=== PATIENT | male | born 1985 | race Caucasian/White ===

== ENCOUNTER 2020-05-25 11:26 | Outpatient (REF) | payer BC, SELFPAY ==
[2020-05-25 13:56] LABS: ALT 29 U/L (16-63); AST 18 U/L (15-37); Calculated LDL 121 mg/dL (<100); Cholesterol 196 mg/dL (<200); HDL Cholesterol 69 mg/dL (40-60); Triglyceride 31 mg/dL (<150)
== END 2020-05-25 11:46 ==
LOC: NCHCN 11:26
PROVIDERS: PCP Nurse Practitioner Family; Visit Provider Nurse Practitioner Family
DX: Z00.00 Encounter for general adult medical examination without abnormal findings (principal); Z13.220 Encounter for screening for lipoid disorders
CPT/HCPCS: 80061; 84450; 84460

== ENCOUNTER 2020-07-14 08:18 | Day surgery (SDC) | payer BC, SELFPAY ==
[2020-07-14 08:26] VITALS: BP 101/62; PULSE 63; RESP 16; TEMP 36.5; O2SAT 100
[2020-07-14] MEDS: Lactated Ringers 1,000 ML 80 ML IV (08:48)
--- NOTE | 2020-07-14 09:49 | BOWEL_PTH ---
PATIENT: Hardy Hickman LOC: [facility] U#:[id number] AGE/SX: 35/M ROOM: RE07/14/[address]: Angeles Mcbride : 1985 BED: DIS: 07/14/2020 SPEC #: [id number] RECD: 07/14/20 12:45 STATUS: GEOVANY REQ #: [id number] JIMMIE: 07/14/20 09:[address]: Angeles Mcbride DEPT: Surgical Specimen RECD BY: Milla Taveras ENTERED: 07/14/20 12:45 SP TYPE: Bowel OTHR DR: Alessandra Carolina Tissues: 1 - BIOPSY BOWEL Procedures: GROSS AND MICRO LEVEL 4 IMMUNOPEROXIDASE STAIN Comments: [id number]
--- NOTE | 2020-07-14 09:56 | W.COLOREPORT ---
Date of service: 07/14/20 Time of Service: 09:57 Colonoscopy Report Date of procedure: 07/14/20 Pre-op diagnosis general: 1st degree family member w/ crc <60 Post-op diagnosis procedure note: other (polyp) Surgeon: Angeles Mcbride Anesthesia proc note operative: GETA Estimated blood loss (mL): 1 Pathology: other Complications: None Disposition: same day Prep: Miralax/Dulcolax Retraction Time: 15 mins Procedure Description: After informed consent was obtained the patient was taken to the procedure room and placed in a left decubitous position. Monitors were applied and a time out was done. The patients name, date of , procedure, allergies to medications and metal in their body was reviewed. The patient was then sedated. Once sedated and comfortable a rectal exam was done. External exam was normal. Internal exam revealed a normal sphincter tone and no palpable masses. The scope was then introduced and retrofelexed. no internal hemorrhoids were identified. The scope was then advanced to the cecum w/out difficulty. The TI and appendiceal orifice were identified. The prep was good. The scope was then slowly retracted over 15 minutes back into the rectum. Polyps were removed in rectum. Patient had a 1 cm polyp in the rectum. This is removed with a hot polypectomy snare. an EndoClip was placed over the defect. All specimens are retrieved and no bleeding is noted. There are no AVMs or diverticula. The mucosa is pink and healthy. The scope was removed and the patient was woken up and taken back to Same day surgery in stable condition. The patient tolerated the procedure well and there were no immediate complications. Follow up: The patient should follow up in 3-5 years, path pd, unless they develop changes in bowel habits or other new gastrointestinal complaints.
--- NOTE | 2020-07-14 10:00 | W.PM.DSUDISC ---
Discharge Plan Disposition Patient Disposition: HOME Condition: Good Discharge Details Reason For Visit: colon scope Attending Provider: Angeles Mcbride Primary Care Provider: Alessandra Carolina Discharge Instructions Additional Instructions: Findings:x1 polyp -No aspirin or NSAIDs x7 days. Follow up: We will send a letter in approximately 3 weeks as to when to repeat the colonoscopy. This will most likely be between 3 to 5 years. Please call if you develop: fevers >101.5 Nausea or Vomiting Abdominal pain that is not transient DAY SURGERY UNIT POST COLONOSCOPY INSTRUCTIONS 1. Because there will be medication in your system for the next 24 hours, you may feel a little sleepy. Your coordination will be affected. Therefore: a. Do not drive or operate dangerous equipment for 24 hours. b. Do not drink alcohol beverages for 24 hours (not even beer). c. Plan to go home and rest for the day. 2. Generally there are no restrictions on your activity after a day or so has gone by, but you may feel a bit fatigued for a few days. 3 After you arrive home you may have a light meal and return to a normal diet as you can tolerate it without feeling sick to your stomach. 4. After surgery, you may feel pain or discomfort. This should be only transient, but if it persists please contact your doctor. 5. If there are any questions regarding the findings of your procedure, please feel free to contact your doctor. 6. If you are unable to contact your doctor with a problem, contact the hospital at [phone]. 7. Continue all your regular medications unless directed otherwise. I understand the above instructions and have no questions. Signature of Patient or Responsible Adult Escort Date/Time Name of Responsible Adult Escort Signature of Nurse Date/Time Activity:: No strenuous activity or heavy lifting x72 hours. Diet:: Small light meals x24 hours. He did not cut it Discharge Orders Discharge Orders: Discharge Order (Routine); Ordered 07/14/20 Ordered By: Anglees Mcbride DS: Diagnosis Discharge Diagnosis (1) Adenomatous polyps: Status: Acute
[2020-07-14 10:32] VITALS: BP 106/76; PULSE 56; RESP 16; TEMP 36.6; O2SAT 100
== END 2020-07-14 11:50 | disposition home or self-care (01) ==
PROVIDERS: PCP Nurse Practitioner Family; Visit Provider Surgery
PROC: 0DJD8ZZ Inspection of Lower Intestinal Tract, Via Natural or Artificial Opening Endoscopic (ICD-10-PCS; CPT 45378; principal; 2020-07-14 09:00)
DX: Z12.11 Encounter for screening for malignant neoplasm of colon (principal); D3A.8 Other benign neuroendocrine tumors; Z80.0 Family history of malignant neoplasm of digestive organs
CPT/HCPCS: 45385; 88305; 88361; J2001

== ENCOUNTER 2020-07-25 18:25 | Outpatient (REF) | payer BC, SELFPAY ==
--- NOTE | 2020-07-25 11:30 | SKI_PTH ---
PATIENT: Hardy Hickman LOC: [facility] U#:[id number] AGE/SX: 35/M ROOM: RE07/25/[address]: Alessandra Carolina : 1985 BED: DIS: 07/25/2020 SPEC #: [id number] RECD: 07/26/20 12:25 STATUS: GEOVANY MCDONALD #: [id number] JIMMIE: 07/25/20 11:[address]: Alessandra Carolina DEPT: Surgical Specimen RECD BY: Milla Taveras Tissues: 1 - SKIN BIOPSY(SHAVE/PUNCH) 2 - SKIN BIOPSY(SHAVE/PUNCH) 3 - SKIN CYST/TAG/DEBRIDEMENT Procedures: SKIN LEVEL 4 Comments: [id number]
== END 2020-07-25 18:26 | disposition home or self-care (01) ==
LOC: NCHCN 18:25
PROVIDERS: PCP Nurse Practitioner Family; Visit Provider Nurse Practitioner Family
DX: D22.5 Melanocytic nevi of trunk (principal); D22.62 Melanocytic nevi of left upper limb, including shoulder
CPT/HCPCS: 88304; 88305

== ENCOUNTER 2021-01-31 00:46 | Outpatient (CLI) | payer BC, SELFPAY ==
[2021-01-31 11:15] LABS: Source Nasal/Nares
[2021-01-31 17:20] LABS: COVID-19 PCR Negative (Negative)
== END 2021-01-31 00:47 | disposition home or self-care (01) ==
LOC: LBO 00:46
PROVIDERS: PCP Nurse Practitioner Family; Visit Provider Surgery
DX: Z20.822 Contact with and (suspected) exposure to COVID-19 (principal); Z01.818 Encounter for other preprocedural examination
CPT/HCPCS: 87635

== ENCOUNTER 2021-02-02 10:20 | Day surgery (SDC) | payer BC, SELFPAY ==
--- NOTE | 2021-02-01 22:44 | COLE_ITS ---
Colonoscopy Report Date of procedure: 02/02/21 Pre-op diagnosis general: carcinoid Post-op diagnosis procedure note: other (x1 polyp ) Surgeon: Angeles Mcbride Anesthesia Type: General:No Airway Pathology: other Disposition: PACU Prep: Miralax/Dulcolax Retraction Time: 12 Procedure Description: After informed consent was obtained the patient was taken to the procedure room and placed in a left decubitous position. Monitors were applied and a time out was done. The patients name, date of , procedure, allergies to medications and metal in their body was reviewed. The patient was then sedated. Once sedated and comfortable a rectal exam was done. External exam was normal. Internal exam revealed a normal sphincter tone and no palpable masses. The prostate nl The scope was then introduced and retrofelexed. No internal hemorrhoids were identified. The scope was then advanced to the cecum w/out difficulty. The TI and appendiceal orifice were identified. The prep was good. The scope was then slowly retracted over 12minutes back into the rectum. Polyps were removed at 20cm. This was a small flat 5 mm polyp and removed with cold biting forcep. Most likely this is going to be hyperplastic. He has no diverticuli. 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 There is no signs of regrowth. The scope was removed and the patient was woken up and taken back to Same day surgery in stable condition. The patient tolerated the procedure well and there were no immediate compli cations. Follow up: The patient should follow up in 1 years unless they develop changes in bowel habits or other new gastrointestinal complaints.
--- NOTE | 2021-02-01 22:45 | PDOC.DSDIS_ITS ---
Discharge Plan Disposition Patient Disposition: HOME Condition: Good Discharge Details Reason For Visit: colon scope Attending Provider: Angeles Mcbride Primary Care Provider: Alessandra Carolina Home Meds and New Rx's Prescriptions: Discontinued polyethylene glycol 3350 17 gram/dose powder 238 g PO ONCE Qty: 238 RF: 0 bisacodyl [Dulcolax (bisacodyl)] 5 mg tablet,delayed release (DR/EC) 5 mg PO ONCE Qty: 4 RF: 0 Discharge Instructions Additional Instructions: DSU Colonoscopy Post- Op Instructions Instructions for Everyone who is given Anesthesia: For your safety, please do the following for the next twenty-four (24) hours: *Do Not operate a motor vehicle (car, truck, motorcycle, etc.) *Do Not drink alcoholic beverages or use any recreational drugs for the first 24 hours or while taking pain medications. The medications in your body may have a reaction that can be dangerous. *Do Not make any important decisions or sign any important papers. Findings:x1 small polyp -will call w/ results. I think this polyp will be benign and not the pre-c ancerous type. The area that the carcinoid tumor was at previously, did not show any re-growth Follow up:repeat in 1 yrs time 1. No lifting over 20 pounds or strenuous activity for the first 24 hours after your procedure. After 24 hours there are no restrictions on your activity but you may feel fatigued for a few days. 2. After you arrive home you may have a light meal and return to your normal diet as you can tolerate it without feeling sick to your stomach. 3. You may have a bloated, gaseous feeling in your belly (abdomen) after a colonoscopy. Passing gas and belching will help. Walking or lying down on your left side with your knees flexed may relieve the discomfort. Call the office at [phone] (Office) or [phone] (Hospital) right away if you notice any of the following: a.Vomiting of blood or ?coffee ground stools?. b.Rectal bleeding 1Tbsp, blood clots or continuous bleeding. c.Severe belly (abdominal) pain. d.A hard distended belly (abdomen) and an inability to pass gas. 4. Please don?t expect to have a normal BM (bowel movement) for 2-3 days after your procedure. 5. If there are questions regarding the findings of your procedure, please contact your doctor 6. If you are unable to contact your doctor with a problem, contact the hospital at [phone]. 7. Continue all your regular medications unless directed otherwise. I understand the above instructions and have no questions. Signature of Patient or Adult Escort Name of Responsible Adult Escort Signature of Nurse Date/Time Activity:: see above Diet:: see above Discharge Orders Discharge Orders: Discharge Order (Routine); Ordered 02/01/21 Ordered By: Angeles Mcbride DS: Diagnosis Discharge Diagnosis (1) Family history of colon cancer: Status: Acute (2) Neuroendocrine tumor: Status: Acute
[2021-02-02 10:32] VITALS: BP 116/74; PULSE 69; RESP 18; TEMP 36.4; O2SAT 99
[2021-02-02] MEDS: Lactated Ringers 1,000 ML 80 ML IV (10:54)
--- NOTE | 2021-02-02 11:42 | W.ANESPRE ---
General Info Date of Service Date Performed: 02/02/21 Height: 6 ft 1 in Weight: 78.6 kg Body Mass Index (BMI): 22.8 Surgical Procedure: Operation Date: 02/02/21 11:20 Proposed Procedures Side Surgeon p Macy Mcbride DO Meds Allergies and Home Medications Allergies Allergy/AdvReac Type Severity Reaction Status Date / Time No Known Allergies Allergy Verified 02/02/21 10:40 Home Medication Medication Instructions Recorded bisacodyl 5 mg tablet,delayed 5 mg PO ONCE #4 tab 01/22/21 release polyethylene glycol 3350 17 238 g PO ONCE #238 g 01/22/21 gram/dose oral powder Current Visit Medications: Current Medications Generic Name Dose Route Start Last Admin Trade Name Freq PRN Reason Stop Dose Admin Hyoscyamine Sulfate 0.125 mg 02/01/21 22:43 Hyoscyamine 0.125 Mg Sl/Oral/Chew SL DIRECTED PRN Ringer's Solution 1,000 mls @ 80 mls/hr 02/02/21 06:00 02/02/21 10:54 IV 03/03/21 23:59 80 mls/hr INFUSION PRAVEEN Administration IV Miscellaneous Supplies 1 each 02/02/21 06:00 Iv Access IV 03/03/21 23:59 DIRECTED PRAVEEN Sodium Chloride 0 ml 02/02/21 06:00 Normal Saline Flush 10 Ml Syr IV 03/03/21 23:59 PRN PRN Sodium Chloride 0 ml 02/02/21 06:00 Normal Saline 10 Ml Vial IJ 03/03/21 23:59 DIRECTED PRN Sterile Water 0 ml 02/02/21 06:00 Water,Injection,Sterile 10 Ml Vial IJ 03/03/21 23:59 DIRECTED PRN PFSH Active Problems Active Problems: Problem Status Onset Code Family history of colon cancer Z80.0 Neuroendocrine tumor D3A.8 Medical History Medical History Family history of colon cancer Father in his 50's Functional communication disorder Obsessive compulsive disorder Toe pain, left Surgical History Surgical History History of colonoscopy with polypectomy (~07/14/20) Tobacco Smoking/Tobacco Use Status: Former Tobacco Use Alcohol Alcohol Intake: former Substance Use Substance use: Never Substance use type: does not use Vital Signs and Lab Results Vital Signs Most Recent Vital Signs in EMR: Most Recent Vital Signs Temp Pulse Resp BP Pulse Ox 36.4 C L 69 18 116/74 99 02/02/21 10:32 02/02/21 10:32 02/02/21 10:32 02/02/21 10:32 02/02/21 10:32 Lab Results Blood Type / Crossmatch: No Data to Display Complete Blood Count: No Data to Display Complete Metabolic Panel: No Data to Display Liver Function Panel: No Data to Display Coagulation Panel: No Data to Display Cardiac Panel: No Data to Display Arterial Blood Gas: No Data to Display Venous Blood Gas: No Data to Display Pancreas Panel: No Data to Display Thyroid Panel: No Data to Display Infectious Disease: Coronavirus (COVID-19)(PCR) Negative (Negative) 01/31/21 09:19 01/31/21 Coronavirus 2019 Source Nasal/Nares 01/31/21 09:19 01/31/21 Blood Cultures: No Data to Display Toxicology Panel: No Data to Display Anesthesia Assessment and Plan Anesthesia History Personal History: No History of Anesthesia Complications Family History: No Family History of Anesthesia Complications Exercise Tolerance Exercise Tolerance: Metabolic Equivalents>4 Pertinent Negatives Pertinent Negatives: No Symptoms of GERD, No Major Cardiovascular Symptoms or Complaints, No Major Pulmonary Symptoms or Complaints and No History of CVA/TIA Cardiac & Pulmonary Exam Cardiac Exam: Normal S1/S2 Heart Sounds Pulmonary Exam: Clear Bilateral Breath Sounds Airway Exam Known Difficult Airway: No Mallampati Class: 2 Mouth Opening: Normal (> 3cm) Thyromental Distance: Greater than 3 cm Neck Range of Motion: Full ROM Neck Circumference: Normal Teeth Condition: Normal Dentition ASA Classification ASA Score: ASA 2 Emergency Case?: No NPO Status NPO Status: NPO Clears >2 hours, Solids >8 hours Anesthesia Plan Resuscitation Status: Full Code Anesthesia Technique: General Anesthesia Airway Planned: Natural Airway Monitors Used: Standard Monitors
[2021-02-02 11:46] VITALS: BMI 22.8
--- NOTE | 2021-02-02 12:11 | BOWEL_PTH ---
PATIENT: Hardy Hickman LOC: [facility] U#:[id number] AGE/SX: 35/M ROOM: RE02/02/[address]: Angeles Mcbride : 1985 BED: DIS: 02/02/2021 SPEC #: [id number] RECD: 02/02/21 12:51 STATUS: GEOVANY REQ #: [id number] JIMMIE: 02/02/21 12:[address]: Angeles Mcbride DEPT: Surgical Specimen RECD BY: Milla Taveras ENTERED: 02/02/21 12:52 SP TYPE: Bowel OTHR DR: Alessandra Carolina Tissues: 1 - BIOPSY BOWEL Procedures: GROSS AND MICRO LEVEL 4 Comments: [id number]
[2021-02-02 12:21] VITALS: BP 98/60; PULSE 78; RESP 16; TEMP 36.4; O2SAT 98
--- NOTE | 2021-02-02 12:42 | W.ANESPOSTOP ---
Postoperative Evaluation Date, Time and Location Date Performed: 02/02/21 Time Performed: 12:21 Patient Location: Day Surgery Unit Vital Signs Most Recent Imported Vital Signs: Most Recent Vital Signs Temp Pulse Resp BP Pulse Ox 36.4 C L 78 16 98/60 L 98 02/02/21 12:21 02/02/21 12:21 02/02/21 12:21 02/02/21 12:21 02/02/21 12:21 Pain Score Most Recent Pain Score: Most Recent Pain Score Pain Level 0 02/02/21 12:21 Assessment Mental Status: Awake (Alert & Oriented to Patient Baseline) Airway and Respiratory Function: Patent airway with normal (patient baseline) respiratory exam Cardiovascular Function: Hemodynamically Stable Hydration Status: Adequately Hydrated Nausea & Vomiting: No Nausea or Vomiting Pain: Pt. Denies Any Pain Peripheral Nerve Block: Patient did not receive a nerve block
[2021-02-02 12:57] VITALS: BP 113/65; PULSE 60; RESP 14; TEMP 36.1; O2SAT 97
== END 2021-02-02 13:33 | disposition home or self-care (01) ==
LOC: SUR 10:20
PROVIDERS: PCP Nurse Practitioner Family; Visit Provider Surgery
PROC: 0DJD8ZZ Inspection of Lower Intestinal Tract, Via Natural or Artificial Opening Endoscopic (ICD-10-PCS; CPT 45378; principal; 2021-02-02 11:15)
DX: Z09 Encounter for follow-up examination after completed treatment for conditions other than malignant neoplasm (principal); K63.5 Polyp of colon; Z86.010 Personal history of colon polyps; Z80.0 Family history of malignant neoplasm of digestive organs
CPT/HCPCS: 45380; 88305; J2001

== ENCOUNTER 2021-07-06 10:40 | Emergency (ER) | payer OTHER, SELFPAY ==
[2021-07-06 10:55] VITALS: BP 118/74; PULSE 61; RESP 16; TEMP 36.7; O2SAT 98
--- NOTE | 2021-07-06 11:00 | DI.RAD_ITS ---
Exam(s) XR FINGER RT MIDDLE EXAM: XR FINGER RT MIDDLE CLINICAL HISTORY: fall, deformity/laxity mid to distal phalanx, lac. TECHNIQUE: 2D digital imaging was performed. COMPARISON: No exams were available for comparison FINDINGS: There is a fracture in the distal aspect of the middle phalanx of the 3rd-middle finger. Mild displa cement and this fracture does violates the articular surface of the DIP joint. There is no obvious f racture of the distal phalanx. No radiopaque foreign body. No osseous lesions. IMPRESSION: DATA REPOSITORY: RADIATION DOSE DELIVERED:
--- NOTE | 2021-07-06 11:17 | ED.GENADUL_ITS ---
Discharge Plan Disposition Patient Disposition: HOME Condition: Stable Discharge Details Chief Complaint: Orthopedic Clinical Impression: Finger fracture, right Primary Care Provider: Alessandra Carolina ED Provider: Quentin Urbina Home Meds and New Rx's Prescriptions: No Action No Known Home Meds 0RF Discharge Instructions Instructions: Finger Fracture (ED) Additional Instructions: Please follow-up with [facility] orthopedic team on Friday or Friday to have repeat examination. Return to the emergency department for worsening severe pain or signs of infection chest severe swelling warmth redness pus drainage. Ice elevation Motrin and Tylenol at home to relieve swelling and pain. Medical Decision Making 36-year-old male presented for mechanical fall, sustained superficial laceration/abrasion to dorsal aspect of third digit, deformity and laxity from mid to distal phalanx, neurovascular exam intact. No signs of head or spinal trauma. Patient is neurologically intact interactive resting comfortably. No signs of trauma to shoulder humerus elbow or forearm. Patient describes what sounds like a presyncopal episode in the setting of standing in the shower assessing his wound. No chest pain or shortness of breath. No further episodes. Will obtain x-ray, patient is up-to-date on tetanus, anti-inflammato ry analgesia, concern for fracture of phalanx versus dislocation. Superficial abrasion/laceration will be irrigated and likely closed with surgical glue and Steri-Strip given the minor nature. Lower suspicion for open fracture. Likely follow-up with orthopedic team 14: 10 patient resting comfortably no acute distress. Ring block performedwith 1% lidocaine approximately 2 to 4 cc; wound on dorsal aspect of third digit irrigated and explored, this is a superficial abrasion with a small laceration, and on its ulnar aspect without obvious flap or communication with deep space of finger, no evidence of open fracture no foreign body, irrigated bacitracin applied and Steri-Strip applied on top as this is a nongaping abrasion/avulsion type injury. Minimal displacement seen on x-ray, placed in finger splint, will follow up with orthopedic team on Friday or Friday. Home care instructions and return precautions given HPI General Date/Time Provider Initiated Documentation: 07/06/21 11:05 . HPI Narrative: 36-year-old male presents after slip and fall on the ice was holding wood in his right arm, fell onto his left side however believes that the wood may have fallen onto his right hand, sustained superficial laceration to third digit, no deformity and pain to distal aspect of digit. No loss of consciousness. Did feel presyncopal in the shower while standing in assessing his wound however no symptoms currently. No chest pain or shortness of breath. No weakness. Does have some paresthesia running up from hand to elbow however no elbow pain. Related Data Home Medications Medication Instructions Recorded Confirmed Unknown [No Known Home Meds] 07/06/21 07/06/21 Allergies Allergy/AdvReac Type Severity Reaction Status Date / Time No Known Allergies Allergy Verified 07/06/21 10:59 General Stated Complaint: Orthopedic UZMA: 4 Review of Systems Narrative: Review of Systems Constitutional: negative Eyes: negative ENT: negative Cardiovascular: negative Respiratory: negative Gastrointestinal: negative : negative Musculoskeletal: negative Skin: negative Neurologic: negative Psych: negative PFSH All Active Problems (Updated 07/06/21 @ 14:13 by Quentin Urbina MD) Finger fracture, right (Acute) Neuroendocrine tumor (Acute) Of rectal polyp. 07/2020 Family history of colon cancer (Acute) Father in his 50's Medical History (Updated 07/06/21 @ 14:13 by Quentin Urbina MD) Functional communication disorder Obsessive compulsive disorder Toe pain, left Surgical History (Updated 02/02/21 @ 14:53 by Dahlia Rojas RN) History of colonoscopy with polypectomy (~07/14/20) History of colonoscopy with polypectomy (~02/02/21) Social History (Updated 07/01/20 @ 09:17 by YEHUDA Joyner) Smoking/Tobacco Use Status: Former Tobacco Use Quit Date: 05/12/16 Smoking risk assessment performed?: Yes Alcohol Intake: former Drug use: Never Substance use type: does not use Do you feel safe at home: Yes Do you feel safe in your relationship?: Yes Exam Narrative Exam Narrative: Physical Examination General: alert, awake, cooperative, resting comfortably, no acute distress HEENT: normocephalic, atraumatic; PERRL, EOM intact, conjunctiva normal; no nasal discharge; moist mucous membranes, oral and pharyngeal mucosa normal, tolerating secretions Neck: supple, trachea midline; full ROM Chest: normal to inspection Respiratory: normal respiratory effort, speaking in full sentences, clear to auscultation, no wheezing, rales or rhonchi Cardiac: regular rate, regular rhythm, S1S2 intact, no murmurs rubs or gallops GI: abdomen soft, non-tender, non-distended; no palpable mass or hepatosplenomegaly Back: No midline spinal tenderness, patient has full range of motion of cervical spine Skin: no lesions, rashes or trauma appreciated Neuro: AAOx3, normal speech, moving all extremities; ambulatory without assistance, moving all extremities Extremities: Right upper extremity: Superficial laceration over middle phalanx of third digit, hemostatic no foreign body nongaping, some laxity to DIP joint, distal and proximal flexion intact Extension intact sensation median radial and ulnar nerve distribution intact. No elbow tenderness laxity or crepitus, full range of motion of elbow and shoulder Psych: Appropriate mood and affect Course Vital Signs Vital signs: Vital Signs Temperature 36.7 C 07/06/21 10:55 Pulse 61 07/06/21 10:55 Respiratory Rate 16 07/06/21 10:55 Blood Pressure 118/74 07/06/21 10:55 Pulse Oximetry 98 07/06/21 10:55 Temperature 36.7 C 07/06/21 10:55 Temperature Source Skin 07/06/21 10:55 Pulse 61 07/06/21 10:55 Respiratory Rate 16 07/06/21 10:55 Respiratory Effort 07/06/21 10:55 Blood Pressure 118/74 07/06/21 10:55 Blood Pressure Position Sitting 07/06/21 10:55 Pulse Oximetry 98 07/06/21 10:55 Oxygen Delivery Method Room Air 07/06/21 10:55 Oxygen Flow Rate 0 07/06/21 10:55 Pain Level 7 07/06/21 10:55
[2021-07-06] MEDS: Ibuprofen 600 MG TAB PO (11:39)
[2021-07-06] MEDS: Acetaminophen 325 MG TAB 650 MG PO (11:39)
== END 2021-07-06 14:19 | disposition home or self-care (01) ==
PROVIDERS: Emergency Provider Emergency Medicine; PCP Nurse Practitioner Family
DX: S62.602A Fracture of unspecified phalanx of right middle finger, initial encounter for closed fracture (principal); W00.0XXA Fall on same level due to ice and snow, initial encounter
CPT/HCPCS: 29130; 99283; 73140; J3490

== ENCOUNTER 2021-07-12 10:10 | Outpatient (CLI) | payer OTHER, SELFPAY ==
--- NOTE | 2021-07-12 09:45 | DI.RAD_ITS ---
Exam(s) XR FINGER RT MIDDLE EXAM: XR FINGER RT MIDDLE INDICATION: right middle finger fracture. COMPARISON: CR XR FINGER RT MIDDLE from 07/06/2021 TECHNIQUE: 2D digital imaging was performed. FINDINGS: There has been no change in the alignment of the intra-articular fracture of the distal aspect of the middle phalanx. DATA REPOSITORY: RADIATION DOSE DELIVERED:
== END 2021-07-12 10:11 | disposition home or self-care (01) ==
LOC: DIORS 10:10
PROVIDERS: PCP Nurse Practitioner Family; Referring Provider Nurse Practitioner Family; Visit Provider Physician Assistant
DX: S62.622A Displaced fracture of middle phalanx of right middle finger, initial encounter for closed fracture; X58.XXXA Exposure to other specified factors, initial encounter
CPT/HCPCS: 73140

== ENCOUNTER 2021-07-12 17:38 | Outpatient (REF) | payer OTHER, SELFPAY ==
[2021-07-12 11:10] LABS: Source Nasal/Nares
[2021-07-12 17:30] LABS: COVID-19 PCR Negative (Negative)
== END 2021-07-12 17:39 | disposition home or self-care (01) ==
LOC: LBN 17:38
PROVIDERS: PCP Nurse Practitioner Family; Visit Provider Student in an Organized Health Care Education/Training Program
DX: Z20.822 Contact with and (suspected) exposure to COVID-19 (principal)
CPT/HCPCS: 87635

== ENCOUNTER 2021-07-13 13:11 | Day surgery (SDC) | payer OTHER, SELFPAY ==
[2021-07-13 13:26] VITALS: BP 117/69; PULSE 68; RESP 16; TEMP 36.7; O2SAT 97
--- NOTE | 2021-07-13 13:30 | DI.RAD_ITS ---
Exam(s) XR HAND RT LIMITED EXAM: XR HAND RT LIMITED CLINICAL HISTORY: RIGHT 3RD FINGER FRACTURE TECHNIQUE: 2D and realtime digital imaging was performed. CONTRAST MATERIAL: Refer to procedure report. COMPARISON: CR XR FINGER RT MIDDLE from 07/12/2021 FINDINGS: Fluoroscopy was provided for Dr. Madrid during the performance of a percutaneous pinning of the fr acture involving the middle phalanx.. Please refer to the procedure report for complete details. Ka,r=0.39 mGy IMPRESSION: RADIATION DOSE DELIVERED:
[2021-07-13] MEDS: Sodium Bicarbonate 50 MEQ/50 ML VIAL (14:44)
[2021-07-13] MEDS: Lidocaine 1% Multi-Dose 50 ML VIAL (14:46)
[2021-07-13] MEDS: Bupivacaine 0.5% Pres-Free 30 ML VIAL (14:46)
[2021-07-13 15:00] VITALS: BP 125/87; PULSE 63; RESP 18; TEMP 36.6; O2SAT 100
--- NOTE | 2021-07-13 16:02 | W.PM.OP ---
Date of service: 07/13/21 Time of Service: 14:50 Operative Note Operative Note DATE OF PROCEDURE: 07/13/21 PRE-OP DIAGNOSIS: Displaced, intra-articular fracture of right middle finger middle phalanx POST-OP DIAGNOSIS: same PROCEDURE: Closed reduction and percutaneous pinning of right middle finger middle phalanx fracture SURGEON: Corbin Madrid ANESTHESIA TYPE: Local By Surgeon Refer to Anesthesia Record ESTIMATED BLOOD LOSS: 0 PATHOLOGY: none sent TOURNIQUET TIME: 0 COMPLICATIONS: None Patient was transported to: same day Patient's condition: stable Indications: I have seen Jerrod in clinic for a displaced fracture of the right middle finger, middle phalanx. Given the displaced nature of this intra-articular fracture and his young age and hand dominance, I recommended reduction and fixation. I reviewed the risks of the procedure to include, but not limited to, bleeding, infection, pain, stiffness, loss of reduction, malunion, nonunion, damage to nerves or vessels. Despite these risks, the patient elected to proceed. Findings: There is a reverse Y-type pattern of the fracture of the middle phalanx. It was highly unstable but was able to be reduced with closed means and cross wires. Procedure Description: Jerrod was greeted in the preoperative holding area where the correct side was identified and marked. The consent was reviewed with the patient and signed. All questions were answered. Jerrod was taken back to the operating room. The patient was placed into the supine position on the operating room table with the right arm on an arm board. All bony prominences were well padded. No prophylactic antibiotics were administered since this was a clean, elective hand surgical case. The right arm was then prepped with Chloraprep and draped in a standard fashion with stockinette and extremity drape. A timeout to confirm correct identity, side and site, procedure, allergies, anesthesia, and medical concerns was performed. A digital block was then performed using 1% lidocaine mixed 50-50 with 0.5% bupivacaine and buffered with sodium bicarbonate. This was allowed time to set up completely and was tested before proceeding with the case. A closed reduction was performed with direct manipulation of the fracture along with traction of the distal aspect of the finger. Fluoroscopy was utilized to confirm appropriate reduction. It was difficult to fully translate the fracture fragment but the extension deformity was improved significantly. The articular split still seem to be slightly but this was improved with a towel, pointed point, clam with the clamp held in position and the finger reduced I then placed a 0.045 K wire in a diagonal position starting at the shoulder of the middle phalangeal head. This was advanced through the fracture fragment into the shaft. Similarly, a 0.045 K wire was placed on the opposite shoulder of the middle phalangeal head and advanced into the shaft. The clamp was removed and reduction was checked. There is still some slight extension so these wires were withdrawn only into the proximal fragment and reduction was exaggerated and the wires advanced once again. This seemed to better approximate the fracture. There is minimal gapping of the articular the wires were then cut at the level of the skin. Xeroform was placed over the pin sites followed by 4 x 4's and a conformer dressing. An AlumaFoam splint was placed dorsally to protect the middle phalanx and DIP joint. The patient tolerated the procedure well and was returned to the Same Day Surgery area in a stable condition suffering no known complication.
== END 2021-07-13 15:25 | disposition home or self-care (01) ==
PROVIDERS: PCP Nurse Practitioner Family; Visit Provider Student in an Organized Health Care Education/Training Program
PROC: (CPT 26746; principal; 2021-07-13 14:00)
DX: S62.622A Displaced fracture of middle phalanx of right middle finger, initial encounter for closed fracture (principal); X58.XXXA Exposure to other specified factors, initial encounter
CPT/HCPCS: 26746; 73120

== ENCOUNTER 2021-07-26 10:10 | Outpatient (CLI) | payer OTHER, SELFPAY ==
--- NOTE | 2021-07-26 09:15 | DI.RAD_ITS ---
Exam(s) XR FINGER RT MIDDLE EXAM: XR FINGER RT MIDDLE CLINICAL HISTORY: RMF CRPP. TECHNIQUE: 2D digital imaging was performed. COMPARISON: CR XR FINGER RT MIDDLE from 07/12/2021 FINDINGS: 3 views There are now 2 2 K-wires across the fracture site in the distal aspect of the middle phalanx. Satis factory position alignment of the fracture fragments. No radiographic evidence of osteomyelitis. IMPRESSION: DATA REPOSITORY: RADIATION DOSE DELIVERED:
== END 2021-07-26 10:11 | disposition home or self-care (01) ==
LOC: DIORS 10:10
PROVIDERS: PCP Nurse Practitioner Family; Visit Provider Physician Assistant
DX: S62.622D Displaced fracture of middle phalanx of right middle finger, subsequent encounter for fracture with routine healing (principal); W00.0XXD Fall on same level due to ice and snow, subsequent encounter
CPT/HCPCS: 73140

== ENCOUNTER 2021-08-09 09:54 | Outpatient (CLI) | payer OTHER, SELFPAY ==
--- NOTE | 2021-08-09 09:45 | DI.RAD_ITS ---
Exam(s) XR FINGER RT MIDDLE EXAM: XR FINGER RT MIDDLE INDICATION: RMF fracture. COMPARISON: CR XR FINGER RT MIDDLE from 07/26/2021 TECHNIQUE: 2D digital imaging was performed. Three views FINDINGS: Previously noted pins through the middle phalanx have been removed showing residual lucency. There h as been no change in fracture alignment. No new abnormalities. DATA REPOSITORY: RADIATION DOSE DELIVERED:
== END 2021-08-09 09:55 | disposition home or self-care (01) ==
LOC: DIORS 09:54
PROVIDERS: PCP Nurse Practitioner Family; Referring Provider Nurse Practitioner Family; Visit Provider Student in an Organized Health Care Education/Training Program
DX: S62.622D Displaced fracture of middle phalanx of right middle finger, subsequent encounter for fracture with routine healing (principal); W00.0XXD Fall on same level due to ice and snow, subsequent encounter
CPT/HCPCS: 73140

== ENCOUNTER 2021-12-03 04:27 | Outpatient (CLI) | payer BC, SELFPAY ==
[2021-12-03 15:51] LABS: Abs Immature Grans 0.01 10^3/uL (0.0-0.06); Absolute Basophil Count 0.06 10^3/uL (0.0-0.2); Absolute Eosinophil Count 0.27 10^3/uL (0.0-0.7); Absolute Lymphocyte Count 2.19 10^3/uL (1.2-3.4); Absolute Monocyte Count 0.53 10^3/uL (0.1-0.8); Absolute Neutrophil Count 3.17 10^3/uL (1.2-6.7); Eosinophils % 4.3; HCT 38.9 % (40.0-50.0); HGB 13.1 g/dL (13.5-17.5); Immature Grans % 0.2; Lymphocytes % 35.2; MCH 28.7 pg (27.0-33.0); MCHC 33.7 % (32.0-36.0); MCV 85 fL (80-95); MPV 9.7 fL (8.0-11.0); Monocytes % 8.5; Neutrophils % 50.8; Platelet Count 239 10^3/uL (130-400); RBC 4.56 10^6/uL (4.36-5.78); RDW 12.4 % (11.8-14.1); RDW-SD 38.5 fL; WBC 6.23 10^3/uL (4.4-10.8)
[2021-12-03 16:07] LABS: ALT 26 U/L (16-63); AST 17 U/L (15-37); Alkaline Phosphatase 65 U/L (46-116); Anion Gap 6.9 mmol/L (3-11); BUN 16 mg/dL (7-18); Bilirubin, Total 0.3 mg/dL (0.2-1.0); CO2 28.1 mmol/L (21.0-32.0); Calcium 9.2 mg/dL (8.5-10.1); Chloride 105 mmol/L (98-107); Glucose 88 mg/dL (74-106); Potassium 3.9 mmol/L (3.5-5.1); Sodium 140 mmol/L (136-145); Total Protein 7.2 g/dL (6.4-8.2)
== END 2021-12-03 04:28 | disposition home or self-care (01) ==
PROVIDERS: PCP Nurse Practitioner Family; Visit Provider Surgery
DX: D3A.8 Other benign neuroendocrine tumors (principal); Z80.0 Family history of malignant neoplasm of digestive organs
CPT/HCPCS: 36415; 80053; 85025

== ENCOUNTER 2022-03-08 10:18 | Day surgery (SDC) | payer BC, SELFPAY ==
--- NOTE | 2022-03-08 05:15 | W.ANESPRE ---
General Info Date of Service Date Performed: 03/08/22 Height: 6 ft 1 in Weight: 80.9 kg Body Mass Index (BMI): 23.5 Surgical Procedure: Operation Date: 03/08/22 10:40 Proposed Procedure Side Surgeon p Flexible Sigmoidoscopy Angeles Mcbride DO Meds Allergies and Home Medications Allergies Allergy/AdvReac Type Severity Reaction Status Date / Time No Known Allergies Allergy Verified 03/08/22 10:38 Home Medication Medication Instructions Recorded acetaminophen 500 mg tablet 500 mg PO Q6H PRN pain #60 tabs 07/13/21 ibuprofen 600 mg tablet 600 mg PO TID PRN pain #60 tabs 07/13/21 bisacodyl 5 mg tablet,delayed 5 mg PO ONCE colonscopy bowel prep 02/21/22 release (Dulcolax (bisacodyl)) #4 tabs polyethylene glycol 3350 17 238 g PO ONCE colonoscopy prep 02/21/22 gram/dose oral powder #238 grams Current Visit Medications: Current Medications Generic Name Dose Route Start Last Admin Trade Name Markq PRN Reason Stop Dose Admin Hyoscyamine Sulfate 0.125 mg 03/08/22 07:59 Hyoscyamine 0.125 Mg Sl/Oral/Chew SL DIRECTED PRN Ringer's Solution 1,000 mls @ 80 mls/hr 03/08/22 06:00 IV 03/08/22 23:59 INFUSION PRAVEEN IV Miscellaneous Supplies 1 each 03/08/22 06:00 Iv Access IV 03/08/22 23:59 DIRECTED PRAVEEN Ondansetron HCl 4 mg 03/08/22 07:59 Ondansetron 4 Mg/2 Ml Vial IVP Q4H PRN PRN Nausea / Vomiting Sodium Chloride 0 ml 03/08/22 06:00 Normal Saline Flush 10 Ml Syr IV 03/08/22 23:59 PRN PRN Sodium Chloride 0 ml 03/08/22 06:00 Normal Saline 10 Ml Vial IJ 03/08/22 23:59 DIRECTED PRN Sterile Water 0 ml 03/08/22 06:00 Water,Injection,Sterile 10 Ml Vial IJ 03/08/22 23:59 DIRECTED PRN PFSH Active Problems Active Problems: Problem Status Onset Code Neuroendocrine tumor D3A.8 Family history of colon cancer Z80.0 Medical History Medical History Functional communication disorder Obsessive compulsive disorder Toe pain, left Surgical History Surgical History History of colonoscopy with polypectomy (~07/14/20) History of colonoscopy with polypectomy (~02/02/21) Tobacco Smoking/Tobacco Use Status: Former Tobacco Use Alcohol Alcohol Intake: former Substance Use Substance use: Never Substance use type: does not use Vital Signs and Lab Results Vital Signs Most Recent Vital Signs in EMR: Temp Pulse Resp BP Pulse Ox 36.3 C L 54 L 18 122/67 100 03/08/22 10:35 03/08/22 10:35 03/08/22 10:35 03/08/22 10:35 03/08/22 10:35 Lab Results Blood Type / Crossmatch: No Data to Display Complete Blood Count: No Data to Display Complete Metabolic Panel: No Data to Display Liver Function Panel: No Data to Display Coagulation Panel: No Data to Display Cardiac Panel: No Data to Display Arterial Blood Gas: No Data to Display Venous Blood Gas: No Data to Display Pancreas Panel: No Data to Display Thyroid Panel: No Data to Display Infectious Disease: No Data to Display Blood Cultures: No Data to Display Toxicology Panel: No Data to Display Anesthesia Assessment and Plan Anesthesia History Personal History: No History of Anesthesia Complications Family History: No Family History of Anesthesia Complications Exercise Tolerance Exercise Tolerance: Metabolic Equivalents>4 Pertinent Negatives Pertinent Negatives: No Symptoms of GERD, No Major Cardiovascular Symptoms or Complaints, No Major Pulmonary Symptoms or Complaints and No History of CVA/TIA Cardiac & Pulmonary Exam Cardiac Exam: Normal S1/S2 Heart Sounds Pulmonary Exam: Clear Bilateral Breath Sounds Implantable Cardiac Device Does patient have a Pacemaker or an ICD?: No Airway Exam Known Difficult Airway: No Mallampati Class: 2 Mouth Opening: Normal (> 3cm) Thyromental Distance: Greater than 3 cm Neck Range of Motion: Full ROM Neck Circumference: Normal Teeth Condition: Normal Dentition ASA Classification ASA Score: ASA 2 Emergency Case?: No NPO Status NPO Status: NPO Clears >2 hours, Solids >8 hours Anesthesia Plan Resuscitation Status: Full Code Anesthesia Technique: General Anesthesia Airway Planned: Natural Airway Monitors Used: Standard Monitors Preoperative Comments:: 37 yo male with previous carcinoid rectal polyp and family history of colon cancer for flex sig. Sig PMHx: OCD, functional communication disorder, former smoker/etoh. Previous Anes: - colo 140 prop/100 lido/150 mcg/kg/min, no issues. - colo 50+50/100 lido/gtt at 150, no issues
[2022-03-08 10:35] VITALS: BP 122/67; PULSE 54; RESP 18; TEMP 36.3; O2SAT 100
[2022-03-08] MEDS: Lactated Ringers 1,000 ML 80 ML IV (11:12)
[2022-03-08 12:03] VITALS: BMI 23.5
[2022-03-08 12:26] VITALS: BP 103/70; PULSE 65; RESP 16; TEMP 36.3; O2SAT 99
--- NOTE | 2022-03-08 12:28 | W.ANESPRE ---
General Info Date of Service Date Performed: 03/08/22 Height: 6 ft 1 in Weight: 80.5 kg Body Mass Index (BMI): 23.4 Surgical Procedure: Operation Date: 03/08/22 10:40 Proposed Procedure Side Surgeon p Flexible Sigmoidoscopy Angeles Mcbride DO Actual Procedure Side Surgeon p Flexible Sigmoidoscopy Not Applicable nAgeles Mcbride DO Pre-Op Diagnosis Post-Op Diagnosis NEUROENDOCRINE TUMOR/RECTAL POLYP, FAMILY HX OF COLON CANCER NORMAL Meds Allergies and Home Medications Allergies Allergy/AdvReac Type Severity Reaction Status Date / Time No Known Allergies Allergy Verified 03/08/22 10:38 Home Medication Medication Instructions Recorded acetaminophen 500 mg tablet 500 mg PO Q6H PRN pain #60 tabs 07/13/21 ibuprofen 600 mg tablet 600 mg PO TID PRN pain #60 tabs 07/13/21 Current Visit Medications: Current Medications Generic Name Dose Route Start Last Admin Trade Name Freq PRN Reason Stop Dose Admin Hyoscyamine Sulfate 0.125 mg 03/08/22 07:59 Hyoscyamine 0.125 Mg Sl/Oral/Chew SL DIRECTED PRN Ringer's Solution 1,000 mls @ 80 mls/hr 03/08/22 06:00 03/08/22 12:23 IV 03/08/22 23:59 80 mls/hr INFUSION PRAVEEN Infusion IV Miscellaneous Supplies 1 each 03/08/22 06:00 Iv Access IV 03/08/22 23:59 DIRECTED PRAVEEN Ondansetron HCl 4 mg 03/08/22 07:59 Ondansetron 4 Mg/2 Ml Vial IVP Q4H PRN PRN Nausea / Vomiting Sodium Chloride 0 ml 03/08/22 06:00 Normal Saline Flush 10 Ml Syr IV 03/08/22 23:59 PRN PRN Sodium Chloride 0 ml 03/08/22 06:00 Normal Saline 10 Ml Vial IJ 03/08/22 23:59 DIRECTED PRN Sterile Water 0 ml 03/08/22 06:00 Water,Injection,Sterile 10 Ml Vial IJ 03/08/22 23:59 DIRECTED PRN PFSH Active Problems Active Problems: Problem Status Onset Code Neuroendocrine tumor D3A.8 Family history of colon cancer Z80.0 Medical History Medical History Functional communication disorder Obsessive compulsive disorder Toe pain, left Surgical History Surgical History History of colonoscopy with polypectomy (~07/14/20) History of colonoscopy with polypectomy (~02/02/21) Tobacco Smoking/Tobacco Use Status: Former Tobacco Use Alcohol Alcohol Intake: former Substance Use Substance use: Never Substance use type: does not use Vital Signs and Lab Results Vital Signs Most Recent Vital Signs in EMR: Most Recent Vital Signs Temp Pulse Resp BP Pulse Ox 36.3 C L 54 L 18 122/67 100 03/08/22 10:35 03/08/22 10:35 03/08/22 10:35 03/08/22 10:35 03/08/22 10:35 Lab Results Blood Type / Crossmatch: No Data to Display Complete Blood Count: No Data to Display Complete Metabolic Panel: No Data to Display Liver Function Panel: No Data to Display Coagulation Panel: No Data to Display Cardiac Panel: No Data to Display Arterial Blood Gas: No Data to Display Venous Blood Gas: No Data to Display Pancreas Panel: No Data to Display Thyroid Panel: No Data to Display Infectious Disease: No Data to Display Blood Cultures: No Data to Display Toxicology Panel: No Data to Display Anesthesia Assessment and Plan Anesthesia History Personal History: No History of Anesthesia Complications Family History: No Family History of Anesthesia Complications Exercise Tolerance Exercise Tolerance: Metabolic Equivalents>4 Pertinent Negatives Pertinent Negatives: No Symptoms of GERD, No Major Cardiovascular Symptoms or Complaints, No Major Pulmonary Symptoms or Complaints and No History of CVA/TIA Cardiac & Pulmonary Exam Cardiac Exam: Normal S1/S2 Heart Sounds Pulmonary Exam: Clear Bilateral Breath Sounds Implantable Cardiac Device Does patient have a Pacemaker or an ICD?: No Airway Exam Known Difficult Airway: No Mallampati Class: 2 Mouth Opening: Normal (> 3cm) Thyromental Distance: Greater than 3 cm Neck Range of Motion: Full ROM Neck Circumference: Normal Teeth Condition: Normal Dentition and Removable Dentures/Plates Upper ASA Classification ASA Score: ASA 2 Emergency Case?: No NPO Status NPO Status: NPO Clears >2 hours, Solids >8 hours Anesthesia Plan Resuscitation Status: Full Code Anesthesia Technique: General Anesthesia Airway Planned: Natural Airway Monitors Used: Standard Monitors
[2022-03-08 12:30] VITALS: BMI 23.4
--- NOTE | 2022-03-08 12:33 | PDOC.DSDIS_ITS ---
Date of service: 03/08/22 Time of Service: 12:35 Discharge Plan Disposition Patient Disposition: HOME Condition: Good Discharge Details Reason For Visit: rectal scope Attending Provider: Angeles Mcbride Primary Care Provider: Alessandra Carolina Home Meds and New Rx's Prescriptions: Continued acetaminophen 500 mg tablet 500 mg PO Q6H PRN (Reason: pain) Qty: 60 2RF ibuprofen 600 mg tablet 600 mg PO TID PRN (Reason: pain) Qty: 60 0RF Discontinued polyethylene glycol 3350 17 gram/dose powder 238 g PO ONCE Qty: 238 0RF Rx Instructions: take per colonoscopy instructions bisacodyl [Dulcolax (bisacodyl)] 5 mg tablet,delayed release (DR/EC) 5 mg PO ONCE Qty: 4 0RF Rx Instructions: take per colonoscopy instructions Discharge Instructions Additional Instructions: DSU Colonoscopy Post- Op Instructions Instructions for Everyone who is given Anesthesia: For your safety, please do the following for the next twenty-four (24) hours: *Do Not operate a motor vehicle (car, truck, motorcycle, etc.) *Do Not drink alcoholic beverages or use any recreational drugs for the first 24 hours or while taking pain medications. The medications in your body may have a reaction that can be dangerous. *Do Not make any important decisions or sign any important papers. Findings: Normal Follow up: Repeat in 1 years time 1. No lifting over 20 pounds or strenuous activity for the first 24 hours after your procedure. After 24 hours there are no restrictions on your activity but you may feel fatigued for a few days. 2. After you arrive home you may have a light meal and return to your normal diet as you can tolerate it without feeling sick to your stomach. 3. You may have a bloated, gaseous feeling in your belly (abdomen) after a colonoscopy. Passing gas and belching will help. Walking or lying down on your left side with your knees flexed may relieve the discomfort. Call the office at [phone] (Office) or [phone] (Hospital) right away if you notice any of the following: a.Vomiting of blood or ?coffee ground stools?. b.Rectal bleeding 1Tbsp, blood clots or continuous bleeding. c.Severe belly (abdominal) pain. d.A hard distended belly (abdomen) and an inability to pass gas. 4. Please don?t expect to have a normal BM (bowel movement) for 2-3 days after your procedure. 5. If there are questions regarding the findings of your procedure, please contact your doctor 6. If you are unable to contact your doctor with a problem, contact the hospital at [phone]. 7. Continue all your regular medications unless directed otherwise. I understand the above instructions and have no questions. Signature of Patient or Adult Escort Name of Responsible Adult Escort Signature of Nurse Date/Time Activity:: see above Diet:: see above
[2022-03-08 12:48] VITALS: BP 104/67; PULSE 58; RESP 16; TEMP 36.4; O2SAT 100
--- NOTE | 2022-03-08 13:54 | W.ANESPOSTOP ---
Postoperative Evaluation Date, Time and Location Date Performed: 03/08/22 Time Performed: 12:26 Patient Location: Day Surgery Unit Vital Signs Most Recent Imported Vital Signs: Most Recent Vital Signs Temp Pulse Resp BP Pulse Ox 36.3 C L 65 16 103/70 99 03/08/22 12:26 03/08/22 12:26 03/08/22 12:03/08/22 12:03/08/22 12:26 Pain Score Most Recent Pain Score: Most Recent Pain Score Pain Level 0 03/08/22 12:26 Assessment Mental Status: Awake (Alert & Oriented to Patient Baseline) Airway and Respiratory Function: Patent airway with normal (patient baseline) respiratory exam Cardiovascular Function: Hemodynamically Stable Hydration Status: Adequately Hydrated Nausea & Vomiting: No Nausea or Vomiting Pain: Pt. Denies Any Pain Peripheral Nerve Block: Patient did not receive a nerve block
--- NOTE | 2022-03-08 19:34 | COLE_ITS ---
Date of service: 03/08/22 Time of Service: 11:00 Colonoscopy Report Date of procedure: 03/08/22 Pre-op diagnosis general: Family history of colorectal cancer/carcinoid tumor of the rectum Post-op diagnosis procedure note: other (Negative scope today) Surgeon: Angeles Mcbride Anesthesia Type: General:No Airway Estimated blood loss (mL): 0 Pathology: none sent Complications: None Disposition: same day Prep: Other (X2 Fleet enemas) Retraction Time: n/a Procedure Description: After informed consent was obtained the patient was taken to the procedure room and placed in a left decubitous position. Monitors were applied and a time out was done. The patients name, date of , procedure, allergies to medications and metal in their body was reviewed. The patient was then sedated. Once sedated and comfortable a rectal exam was done. External exam was normal. Internal exam revealed a normal sphincter tone and no palpable masses. The prostate nl The scope was then introduced and retrofelexed. No internal hemorrhoids were identified. He does have a few hypertrophied papillae. Examination of the rectum was then carried out. The mucosa is pink and healthy with a normal vascular pattern. The area of scar where the carcinoid polyp was removed is visualized. There is no signs in any regrowth. There are no other polyps noted today. The scope was removed and the patient was woken up and taken back to [facility] day surgery in stable condition. The patient tolerated the procedure well and there were no immediate complications. Follow up: The patient should follow up in 1 years unless they develop changes in bowel habits or other new gastrointestinal complaints.
== END 2022-03-08 13:19 | disposition home or self-care (01) ==
PROVIDERS: PCP Nurse Practitioner Family; Visit Provider Surgery
PROC: 0DJD8ZZ Inspection of Lower Intestinal Tract, Via Natural or Artificial Opening Endoscopic (ICD-10-PCS; CPT 45330; principal; 2022-03-08 10:30)
DX: Z12.11 Encounter for screening for malignant neoplasm of colon (principal); Z80.0 Family history of malignant neoplasm of digestive organs
CPT/HCPCS: 45378

== ENCOUNTER 2023-02-12 16:40 | Outpatient (REF) | payer OTHER, SELFPAY ==
[2023-02-12 21:31] LABS: HCT 44.2 % (40.0-50.0); HGB 14.7 g/dL (13.5-17.5); MCH 28.3 pg (27.0-33.0); MCHC 33.3 % (32.0-36.0); MCV 85 fL (80-95); MPV 10.4 fL (8.0-11.0); Platelet Count 257 10^3/uL (130-400); RBC 5.19 10^6/uL (4.36-5.78); RDW 12.4 % (11.8-14.1); RDW-SD 38.5 fL; WBC 5.48 10^3/uL (4.4-10.8)
[2023-02-12 22:01] LABS: ALT 24 U/L (16-63); AST 16 U/L (15-37); Albumin 4.1 g/dL (3.4-5.0); Alkaline Phosphatase 65 U/L (46-116); Anion Gap 9.4 mmol/L (3-11); BUN 15 mg/dL (7-18); Bilirubin, Total 0.7 mg/dL (0.2-1.0); CO2 25.6 mmol/L (21.0-32.0); Calcium 9.3 mg/dL (8.5-10.1); Chloride 104 mmol/L (98-107); Estimated GFR 98.18 (mL/min/1.73m2); Glucose 100 mg/dL (74-106); Potassium 4.1 mmol/L (3.5-5.1); Sodium 139 mmol/L (136-145); Total Protein 7.3 g/dL (6.4-8.2)
== END 2023-02-12 16:41 | disposition home or self-care (01) ==
LOC: NCHCN 16:40
PROVIDERS: PCP Nurse Practitioner Family; Visit Provider Nurse Practitioner Family
DX: Z00.00 Encounter for general adult medical examination without abnormal findings (principal)
CPT/HCPCS: 80053; 85027

== ENCOUNTER 2023-07-01 08:20 | Day surgery (SDC) | payer OTHER, SELFPAY ==
--- NOTE | 2023-06-30 12:50 | PDOC.DSDIS_ITS ---
Date of service: 07/01/23 Time of Service: 10:03 Discharge Plan Disposition Patient Disposition: Home Condition: Good Discharge Details Reason For Visit: flex sig Attending Provider: Angeles Mcbride Primary Care Provider: Alessandra Carolina Home Meds and New Rx's Prescriptions: No Action acetaminophen 500 mg tablet 500 mg PO Q6H PRN (Reason: pain) Qty: 60 2RF ibuprofen 600 mg tablet 600 mg PO TID PRN (Reason: pain) Qty: 60 0RF Discharge Instructions Additional Instructions: DSU Post-Op Instructions Instructions for Everyone who is given Anesthesia: For your safety, please do the following for the next twenty-four (24) hours: *Do Not operate a motor vehicle (car, truck, motorcycle, etc.) *Do Not drink alcoholic beverages or use any recreational drugs for the first 24 hours or while taking pain medications. The medications in your body may have a reaction that can be dangerous. *Do Not make any important decisions or sign any important papers. Findings: small polyp in rectum My office will send you a letter in 2-3 weeks time with the results of the biopsies and when we want to repeat the procedure Follow up: Most likely in one yrs time 1. No lifting over 20 pounds or strenuous activity for the first 24 hours after your procedure. After 24 hours there are no restrictions on your activity but you may feel fatigued for a few days. 2. After you arrive home you may have a light meal and return to your normal diet as you can tolerate it without feeling sick to your stomach. 3. You may have a bloated, gaseous feeling in your belly (abdomen) after a colo noscopy. Passing gas and belching will help. Walking or lying down on your left side with your knees flexed may relieve the discomfort. Call the office at [phone] (Office) or [phone] (Hospital) right away if you notice any of the following: a.Vomiting of blood or ?coffee ground stools?. b.Rectal bleeding 1Tbsp, blood clots or continuous bleeding. c.Severe belly (abdominal) pain. d.A hard distended belly (abdomen) and an inability to pass gas. 4. Please don?t expect to have a normal BM (bowel movement) for 2-3 days after your procedure. 5. If there are questions regarding the findings of your procedure, please contact your doctor 6. If you are unable to contact your doctor with a problem, contact the hospital at [phone]. 7. Continue all your regular medications unless directed otherwise. I understand the above instructions and have no questions. Signature of Patient or Adult Escort Name of Responsible Adult Escort Signature of Nurse Date/Time Activity:: see above Diet:: see above Discharge Orders Discharge Orders: Discharge Order (Routine); Ordered 07/01/23 Ordered By: Angeles Mcbride DS: Diagnosis Discharge Diagnosis (1) Family history of colon cancer: Status: Acute (2) Neuroendocrine tumor: Status: Acute Asessment and Plan: The patient is seen and examined afte there flex sig.? The patient has been able to pass gas.? They are not having abdominal pain.? They have been able to tolerate liquids and a snack.? They do not have any nausea or vomiting.? They are not having any chest pain or shortness of breath.??? They are not having any rectal bleeding. Their vital signs have been stable-see nursing notes. We discussed findings during scope, and any biopsies that were done/polyps that were removed. The patient will be sent a letter with any biopsy results, and when to repeat the colonoscopy.-see discharge instructions. Patient was given explicit instructions to follow-up regarding colonoscopy-refer to discharge instructions.? We reviewed resumption of medications. Patient verbalized understanding and discharged in stable and satisfactory condition- See nursing notes. (3) Functional communication disorder:
[2023-07-01 08:23] VITALS: BP 111/73; PULSE 61; RESP 16; TEMP 36.3; O2SAT 100
--- NOTE | 2023-07-01 09:56 | BOWEL_PTH ---
PATIENT: Hardy Hickman LOC: [facility] U#:[id number] AGE/SX: 38/M ROOM: RE07/01/[address]: Angeles Mcbride : 1985 BED: DIS: 07/01/2023 SPEC #: [id number] RECD: 07/01/23 12:41 STATUS: GEOVANY REQ #: [id number] JIMMIE: 07/01/23 09:[address]: Angeles Mcbride DEPT: Surgical Specimen RECD BY: Milla Taveras ENTERED: 07/01/23 12:41 SP TYPE: Bowel OTHR DR: Alessandra Carolina Tissues: 1 - BIOPSY BOWEL Procedures: GROSS AND MICRO LEVEL 4 Comments: [id number]
[2023-07-01 10:03] VITALS: BP 115/74; PULSE 58; RESP 16; TEMP 36.6; O2SAT 99
--- NOTE | 2023-07-01 10:16 | W.PM.OP ---
Date of service: 07/01/23 Time of Service: 10:18 Operative Note Operative Note DATE OF PROCEDURE: 07/01/23 PRE-OP DIAGNOSIS: carcinoid polyp of rectum POST-OP DIAGNOSIS: same PROCEDURE: flex sig SURGEON: Angeles Mcbride ANESTHESIA TYPE: Other Refer to Anesthesia Record ESTIMATED BLOOD LOSS: 1 PATHOLOGY: other COMPLICATIONS: None Patient was transported to: same day Patient's condition: stable Procedure Description: After informed consent was obtained the patient was taken to the procedure room and placed in a left decubitous position. Monitors were applied and a time out was done. The patients name, date of , procedure, allergies to medications and metal in their body was reviewed. T. External exam was normal. Internal exam revealed a normal sphincter tone and no palpable masses. The prostate w/out masses. The scope was then introduced and retrofelexed. No internal hemorrhoids were identified. The scope was then advanced to the 30cm. There was a small area of mucosal irregularity at the 6 o'clock position. I think this is where the scar from the original polyp was. A biopsy was taken with a cold biopsy forcep. All specimen is retrieved and no bleeding is noted. The scope was removed and the patient was taken back to Same day surgery in stable condition. The patient tolerated the procedure well and there were no immediate complications. Follow up: The patient should follow up in 1 years unless they develop changes in bowel habits or other new gastrointestinal complaints.
--- NOTE | 2023-07-01 10:22 | W.COLOREPORT ---
Date of service: 07/01/23 Time of Service: 10:22 Colonoscopy Report Date of procedure: 07/01/23 Pre-op diagnosis general: Carcinoid polyp of the rectum Post-op diagnosis procedure note: same Procedure: Flexible sigmoid Surgeon: Angeles Mcbride Anesthesia Type: Other (none) Estimated blood loss (mL): 1 Pathology: other Complications: None Disposition: same day Prep: Other (Fleets enemas x 2) Procedure Description: After informed consent was obtained the patient was taken to the procedure room and placed in a left decubitous position. Monitors were applied and a time out was done. The patients name, date of , procedure, allergies to medications and metal in their body was reviewed. T. External exam was normal. Internal exam revealed a normal sphincter tone and no palpable masses. The prostate w/out masses. The scope was then introduced and retrofelexed. No internal hemorrhoids were identified. The scope was then advanced to the 20cm. There was a small area of mucosal irregularity at the 6 o'clock position in the rectum. I think this is where the scar from the original polyp was. A biopsy was taken with a cold biopsy forcep. All specimen is retrieved and no bleeding is noted. The scope was removed and the patient was taken back to Same day surgery in stable condition. The patient tolerated the procedure well and there were no immediate complications. Follow up: The patient should follow up in 1 years unless they develop changes in bowel habits or other new gastrointestinal complaints. Arnold Bowel Prep Arnold Bowel Prep Left Colon: 3 Total Score: 3
== END 2023-07-01 10:23 | disposition home or self-care (01) ==
LOC: SUR 08:20
PROVIDERS: PCP Nurse Practitioner Family; Visit Provider Surgery
PROC: 0DJD8ZZ Inspection of Lower Intestinal Tract, Via Natural or Artificial Opening Endoscopic (ICD-10-PCS; CPT 45330; principal; 2023-07-01 09:30)
DX: Z12.11 Encounter for screening for malignant neoplasm of colon; Z80.0 Family history of malignant neoplasm of digestive organs; Z85.040 Personal history of malignant carcinoid tumor of rectum; Z86.010 Personal history of colon polyps
CPT/HCPCS: 45331; 88305

== ENCOUNTER 2024-07-22 15:08 | Outpatient (REF) | payer OTHER, SELFPAY ==
[2024-07-22 20:58] LABS: HCT 44.3 % (40.0-50.0); HGB 14.9 g/dL (13.5-17.5); MCH 28.9 pg (27.0-33.0); MCHC 33.6 % (32.0-36.0); MCV 86 fL (80-95); MPV 10.5 fL (8.0-11.0); Platelet Count 259 10^3/uL (130-400); RBC 5.15 10^6/uL (4.36-5.78); RDW 12.7 % (11.8-14.1); RDW-SD 40.1 fL
[2024-07-22 21:12] LABS: ALT 28 U/L (16-63); AST 20 U/L (15-37); Alkaline Phosphatase 73 U/L (46-116); Anion Gap 9.5 mmol/L (3-11); BUN 22 mg/dL (7-18); Bilirubin, Total 0.3 mg/dL (0.2-1.0); CO2 26.5 mmol/L (21.0-32.0); CREATININE 0.9 mg/dL (0.70-1.30); Calcium 9.2 mg/dL (8.5-10.1); Calculated LDL 107 mg/dL (<100); Chloride 107 mmol/L (98-107); Cholesterol 197 mg/dL (<200); Estimated GFR 110.73 (mL/min/1.73m2); Glucose 83 mg/dL (74-106); HDL Cholesterol 61 mg/dL (>or=40); Potassium 4.7 mmol/L (3.5-5.1); Sodium 143 mmol/L (136-145); Total Protein 7.1 g/dL (6.4-8.2); Triglyceride 148 mg/dL (<150)
== END 2024-07-22 15:09 | disposition home or self-care (01) ==
LOC: NCHCN 15:08
PROVIDERS: PCP Nurse Practitioner Family; Visit Provider Nurse Practitioner Family
DX: Z00.00 Encounter for general adult medical examination without abnormal findings (principal)
CPT/HCPCS: 80053; 80061; 85027

== ENCOUNTER 2024-08-06 06:20 | Day surgery (SDC) | payer OTHER, SELFPAY ==
[2024-08-06 06:30] VITALS: BP 109/76; PULSE 75; RESP 16; TEMP 36.3; O2SAT 100
[2024-08-06] MEDS: Lactated Ringers 1,000 ML 80 ML IV (06:48)
--- NOTE | 2024-08-06 07:07 | ANES.PREOP_ITS ---
General Info Date of Service Date Performed: 08/06/24 Height: 6 ft 2 in Weight: 82 kg Body Mass Index (BMI): 23.2 Surgical Procedure: Operation Date: 08/06/24 07:35 Proposed Procedure Side Surgeon p Colonoscopy Girish Bain MD Meds Allergies and Home Medications Allergies Allergy/AdvReac Type Severity Reaction Status Date / Time No Known Allergies Allergy Verified 08/06/24 06:40 Home Medication ?Medication ?Instructions ?Recorded acetaminophen 500 mg tablet 500 mg PO Q6H PRN pain #60 tabs 07/13/21 ibuprofen 600 mg tablet 600 mg PO TID PRN pain #60 tabs 07/13/21 bisacodyl 5 mg tablet,delayed 5 mg PO ONCE #4 tabs 07/29/24 release (Dulcolax (bisacodyl)) polyethylene glycol 3350 17 17 g PO ONCE #238 grams 07/29/24 gram/dose oral powder Current Visit Medications: Current Medications Generic Name Dose Route Start Last Admin Trade Name Freq PRN Reason Stop Dose Admin Ringer's Solution 1,000 mls @ 80 mls/hr 08/06/24 06:00 08/06/24 06:48 IV 08/06/24 23:59 80 mls/hr INFUSION PRAVEEN Administration IV Miscellaneous Supplies 1 each 08/06/24 06:00 Iv Access IV 08/06/24 23:59 DIRECTED PRAVEEN Sodium Chloride 0 ml 08/06/24 06:00 Normal Saline Flush 10 Ml Syr IV 08/06/24 23:59 PRN PRN Sodium Chloride 0 ml 08/06/24 06:00 Normal Saline 10 Ml Vial IJ 08/06/24 23:59 DIRECTED PRN Sterile Water 0 ml 08/06/24 06:00 Water,Injection,Sterile 10 Ml Vial IJ 08/06/24 23:59 DIRECTED PRN PFSH Active Problems Active Problems: Problem Status Onset Code Neuroendocrine tumor Acute D3A.8 Family history of colon cancer Acute Z80.0 Medical History Medical History Obsessive compulsive disorder Toe pain, left Functional communication disorder Surgical History Surgical History (Updated 08/06/24 @ 06:42 by Jazmine Champagne RN) H/O hand surgery History of colonoscopy (~06/2023) biopsies History of colonoscopy with polypectomy (~02/02/21) History of colonoscopy with polypectomy (~07/14/20) Tobacco Smoking/Tobacco Use Status: Former Tobacco Use Passive smoking exposure: No Alcohol Alcohol Intake: former Substance Use Substance use: Never Substance use type: does not use Vital Signs and Lab Results Vital Signs Most Recent Vital Signs in EMR: Most Recent Vital Signs Temp Pulse Resp BP Pulse Ox 36.3 C L 75 16 109/76 100 08/06/24 06:30 08/06/24 06:30 08/06/24 06:30 08/06/24 06:30 08/06/24 06:30 Lab Results Blood Type / Crossmatch: No Data to Display Complete Blood Count: White Blood Count 6.10 10^3/uL (4.4-10.8) 07/22/24 12:50 Red Blood Count 5.15 10^6/uL (4.36-5.78) 07/22/24 12:50 Hemoglobin 14.9 g/dL (13.5-17.5) 07/22/24 12:50 Hematocrit 44.3 % (40.0-50.0) 07/22/24 12:50 Platelet Count 259 10^3/uL (130-400) 07/22/24 12:50 Complete Metabolic Panel: Sodium 143 mmol/L (136-145) 07/22/24 12:50 Potassium 4.7 mmol/L (3.5-5.1) 07/22/24 12:50 Chloride 107 mmol/L (98-107) 07/22/24 12:50 Carbon Dioxide 26.5 mmol/L (21.0-32.0) 07/22/24 12:50 BUN 22 mg/dL (7-18) H 07/22/24 12:50 Creatinine 0.9 mg/dL (0.70-1.30) 07/22/24 12:50 Est GFR (CKD-EPI 2020) 110.73 (mL/min/1.73m2) 07/22/24 12:50 Calcium 9.2 mg/dL (8.5-10.1) 07/22/24 12:50 Albumin 4.0 g/dL (3.4-5.0) 07/22/24 12:50 Glucose 83 mg/dL (74-106) 07/22/24 12:50 Liver Function Panel: Alanine Aminotransferase (ALT/SGPT) 28 U/L (16-63) 07/22/24 12: 50 Aspartate Amino Transf (AST/SGOT) 20 U/L (15-37) 07/22/24 12:50 Coagulation Panel: No Data to Display Cardiac Panel: No Data to Display Arterial Blood Gas: No Data to Display Venous Blood Gas: No Data to Display Pancreas Panel: No Data to Display Thyroid Panel: No Data to Display Infectious Disease: No Data to Display Blood Cultures: No Data to Display Toxicology Panel: No Data to Display Anesthesia Assessment and Plan Anesthesia History Personal History: No History of Anesthesia Complications Family History: No Family History of Anesthesia Complications Exercise Tolerance Exercise Tolerance: Metabolic Equivalents>4 Pertinent Negatives Pertinent Negatives: No Symptoms of GERD Cardiac & Pulmonary Exam Cardiac Exam: Normal S1/S2 Heart Sounds Pulmonary Exam: Clear Bilateral Breath Sounds Implantable Cardiac Device Does patient have a Pacemaker or an ICD?: No Airway Exam Known Difficult Airway: No Mallampati Class: 2 Mouth Opening: Normal (> 3cm) Thyromental Distance: Greater than 3 cm Neck Range of Motion: Full ROM Neck Circumference: Normal Teeth Condition: Normal Dentition and Removable Dentures/Plates Upper ASA Classification ASA Score: ASA 2 Emergency Case?: No NPO Status NPO Status: NPO Clears >2 hours, Solids >8 hours Anesthesia Plan Resuscitation Status: Full Code Anesthesia Technique: General Anesthesia Airway Planned: Natural Airway Monitors Used: Standard Monitors
[2024-08-06 07:09] VITALS: BMI 23.2
--- NOTE | 2024-08-06 07:21 | W.PM.DSUDISC ---
Date of service: 08/06/24 Discharge Plan Disposition Patient Disposition: Home Condition: Good Discharge Details Reason For Visit: Screening colonoscopy Attending Provider: Girish Bain Primary Care Provider: Alessandra Carolina Home Meds and New Rx's Prescriptions: Continued acetaminophen 500 mg tablet 500 mg PO Q6H PRN (Reason: pain) Qty: 60 2RF ibuprofen 600 mg tablet 600 mg PO TID PRN (Reason: pain) Qty: 60 0RF Discontinued bisacodyl [Dulcolax (bisacodyl)] 5 mg tablet,delayed release (DR/EC) 5 mg PO ONCE Qty: 4 0RF Rx Instructions: Take per colonoscopy instructions provided by ordering providers office polyethylene glycol 3350 17 gram/dose powder 17 g PO ONCE Qty: 238 0RF Rx Instructions: Take per colonoscopy instructions provided by ordering providers office Discharge Instructions Additional Instructions: Hardy, was very nice meeting you today, and I hope you are comfortable through the colonoscopy. Everything went very smoothly. I can see the old scar tissue where the rectal carcinoid tumor was removed. All of it looks fine. I do not see any evidence of any recurrence here. The rest of your colonoscopy was also normal. As we talked about beforehand, based on your family history, I recommend a 5-year interval for your next colonoscopy. 1. If tolerated, consume a soft, low fiber diet for 1-2 days. 2[address] Do not drive, drink alcohol, operate machinery, make critical decisions, or do activities that require coordination or balance for 24 hours. 3. Because air was put into your colon during the procedure, expelling air from your rectum (passing gas or farting) is normal. 4. You may not have a bowel movement for 1-3 days because of the colonoscopy prep. This is normal. 5. Go directly to the emergency room if you notice any of the following: Develop chills (warm to touch), or if you have a thermometer and your temperature is above 101 Difficulty breathing or difficultly swallowing Persistent vomiting Severe abdominal pain, other than gas cramps Severe chest pain Black, tarry stools Any bleeding ? exceeding one tablespoon 6. Call your physician if the site where your intravenous was started becomes red, swollen, painful, and warm to touch. 7. Your physician has reviewed your pre-procedure medications. Please continue to take those medications as previously ordered. You will be given specific information/education regarding any changes to your medications before leaving. Activity:: Activity as Tolerated Diet:: As Tolerated Discharge Orders Discharge Orders: Discharge Order (Routine); Ordered 08/06/24 Ordered By: Girish Bain DS: Diagnosis Discharge Diagnosis (1) Encounter for screening colonoscopy: Status: Acute Asessment and Plan: Negative screening colonoscopy; based on family history 5-year follow-up
--- NOTE | 2024-08-06 07:22 | W.COLOREPORT ---
Date of service: 08/06/24 Time of Service: 07:58 Colonoscopy Report Date of procedure: 08/06/24 Pre-op diagnosis general: Screening colonoscopy Post-op diagnosis procedure note: other (Negative screening colonoscopy) Procedure: Colonoscopy Surgeon: Girish Bain Anesthesia Type: General:No Airway Estimated blood loss (mL): 0 Pathology: none sent Complications: None Disposition: same day Indications: Hardy is a 39-year-old male with a first-degree family history of colon cancer. He also has personal history of a rectal neuroendocrine tumor. He is here for his neck screening colonoscopy. Prep: Miralax/Dulcolax Procedure Start Time: 07:35 Procedure End Time: 07:53 Retraction Time: 11 Findings: Healthy appearing scar tissue in the rectum, otherwise negative screening colonoscopy Procedure Description: After the induction of anesthesia, and with the patient in left lateral decubitus position, I began by performing an external anorectal exam.? The perineum and skin were normal, as was the anal verge.? There was no evidence of external hemorrhoids.? Next, I performed a digital rectal exam.? This was normal.? Next, I advanced a colonoscope into the rectal vault.? I performed retroflexion. This appeared normal.? In the midportion of the rectal vault, approximately 7 cm from the anal verge was a small area of scar tissue. Mucosa appeared healthy, with no other abnormalities. I saw no evidence of any polypoid tissue, or any evidence of any carcinoid recurrence. Using insufflation, I then advanced the colonoscope beyond the rectal folds and into the sigmoid colon before advancing towards the cecum.? The quality of the prep was excellent.? The scope was noted to be in the cecum by identification of the ileocecal valve and appendiceal orifice.? I then began withdrawing the colonoscope using repeated irrigation as necessary for full evaluation of the colonic mucosa. ?Once the scope was withdrawn to the level of the rectum, great care was taken to examine portions of the rectal folds.? Finally, the scope was withdrawn and the patient was brought to the same-day surgery recovery unit as the anesthetic wore off. ?The findings and instructions were shared with the patient prior to discharge. Raymond Bowel Prep Raymond Bowel Prep Right Colon: 3 Left Colon: 3 Transverse Colon: 3 Total Score: 9
[2024-08-06 07:59] VITALS: BP 114/77; PULSE 83; RESP 18; TEMP 36.2; O2SAT 98
[2024-08-06 08:28] VITALS: BP 108/79; PULSE 70; RESP 16; TEMP 36.3; O2SAT 98
--- NOTE | 2024-08-06 08:32 | W.ANESPOSTOP ---
Postoperative Evaluation Date, Time and Location Date Performed: 08/06/24 Time Performed: 08:32 Patient Location: Day Surgery Unit Vital Signs Most Recent Imported Vital Signs: Most Recent Vital Signs Temp Pulse Resp BP Pulse Ox 36.3 C L 70 16 108/79 98 08/06/24 08:28 08/06/24 08:28 08/06/24 08:28 08/06/24 08:28 08/06/24 08:28 Pain Score Most Recent Pain Score: Most Recent Pain Score Pain Level 0 08/06/24 08:28 Assessment Mental Status: Awake (Alert & Oriented to Patient Baseline) Airway and Respiratory Function: Patent airway with normal (patient baseline) respiratory exam Cardiovascular Function: Hemodynamically Stable Hydration Status: Adequately Hydrated Nausea & Vomiting: No Nausea or Vomiting Pain: Pt. Denies Any Pain Peripheral Nerve Block: Patient did not receive a nerve block
== END 2024-08-06 08:49 | disposition home or self-care (01) ==
PROVIDERS: PCP Nurse Practitioner Family; Visit Provider Surgery
PROC: 0DJD8ZZ Inspection of Lower Intestinal Tract, Via Natural or Artificial Opening Endoscopic (ICD-10-PCS; CPT 45378; principal; 2024-08-06 07:30)
DX: Z12.11 Encounter for screening for malignant neoplasm of colon (principal); Z80.0 Family history of malignant neoplasm of digestive organs
CPT/HCPCS: 45378; J2704